=== PATIENT | male | born 1990 | race Caucasian/White ===

== ENCOUNTER 2018-12-16 19:43 | Observation (INO) | payer SELFPAY ==
[~2018-12-16] VITALS: Ht 182.9 cm; Wt 92.2 kg
[2018-12-16 21:31] LABS: BASO % 0.2 % (0.0-2.0); EOS % 0.1 % (0-4.0); GRAN # 15.5 (1.4-6.5); GRAN % 84.4 % (42.2-75.2); HEMATOCRIT 42.5 % (42.0-52.0); HEMOGLOBIN 15.2 g/dl (13.5-18.0); LYMPH # 1.3 (1.2-3.4); LYMPH % 7.2 % (20.0-51.0); MEAN CELL VOLUME 92 fl (80.0-100.0); MEAN CORPUSCULAR HEMOGLOBIN 33 pg (27.0-31.0); MEAN CORPUSCULAR HGB CONC 36 g/dl (33.0-37.0); MEAN PLATELET VOLUME 8.8 fl (7.4-10.4); MONO # 1.4 (0.1-0.6); MONO % 7.7 % (1.7-9.3); PLATELET COUNT 226 K/mm3 (130-400); RED BLOOD COUNT 4.62 M/mm3 (4.20-5.60)
[2018-12-16 21:49] LABS: POTASSIUM 3.6 mmol/L (3.4-5.0)
[2018-12-16 21:52] LABS: ALANINE AMINOTRANSFERASE 37 U/L (21-72); ALBUMIN 4.5 gm/dL (3.5-5.0); ALKALINE PHOSPHATASE 81 U/L (50-136); ANION GAP 11 mmol/L (7-16); AST,SGOT 51 U/L (15-37); BILIRUBIN,TOTAL 0.7 mg/dL (0.0-1.0); BLOOD UREA NITROGEN 18 mg/dL (9-20); CALCIUM 9.3 mg/dL (8.4-10.2); CARBON DIOXIDE 28 mmol/L (22-30); CHLORIDE 99 mmol/L (98-107); CREATININE, serum 1.04 mg/dL (0.66-1.25); GLUCOSE 134 mg/dL (74-106); LIPASE 93 U/L (23-300); SODIUM 138 mmol/L (137-145); TOTAL PROTEIN 7.8 gm/dL (6.4-8.2)
[2018-12-16 21:55] LABS: C-REACTIVE PROTEIN < 0.5 mg/dL (0.0-0.9)
[2018-12-17] VITALS (13 sets, daily range): BP systolic 102–123; BP diastolic 52–68; PULSE 47–80; TEMP 96.9–98.6
--- NOTE | 2018-12-17 00:30 | NUR ---
PT ADMITTED FROM E.D. WITH Dx OF APPEDICITIS. PT DENIED NEED FOR PAIN MEDS AT ADMISSION. NO c/o N/V. SEE 5 PAGE ADMISSION ASSESSMENT.
--- NOTE | 2018-12-17 08:00 | NUR ---
Patient alert and oriented, answers questions appropriately. See assessment. Abdomen soft, non distended. Tenderness noted to RLQ. +Flatus. No nausea or vomiting. No other c/o at this time.
--- NOTE | 2018-12-17 08:24 | NUR ---
0810 Dr Parikh here to see patient. 0815 Chlorhexadine shower complete.
--- NOTE | 2018-12-17 12:29 | NUR ---
Patient lives at home with a roommate in [place], [place] and he is a [employer] student who plans to discharge home with his roommate/friend upon recovery. Patient's mother (Sue) is also supportive but lives in [place], [place] and her contact number is [phone]. Patient is independent with daily living activities, his primary care physician is Dr. Pizarro ([place]), his pharmacy is [facility], and he does not have advance directives completed at this time. No further needs at this time.
--- NOTE | 2018-12-17 16:56 | NUR ---
Discharge instructions reviewed with patient and family, verbalized understanding. Provided with financial assistance paperwork. Discharged ambulatory to auto/home with family at 1610.
== END 2018-12-17 16:10 | disposition home or self-care (01) ==
LOC: COL.ER 19:43 → SURG 22:35 → EDBEDREQ 23:05 → SURG 12-17 16:10
PROVIDERS: Emergency Medicine; ADMIT Surgery
DX: K35.891 Other acute appendicitis without perforation, with gangrene (principal); K38.1 Appendicular concretions
CPT/HCPCS: G0378; J1100; J1170; J1885; J2405; J2543; J2704; J3010; J7030; Q9967